=== PATIENT | female | born 1955 | race Caucasian/White ===

== ENCOUNTER 2024-01-18 13:41 | Emergency (ER) | payer MEDICARE, BC, OTHER, SELFPAY ==
[2024-01-18 14:00] VITALS: BP 150/82; PULSE 92; TEMP 36.7; O2SAT 98; BMI 20.9
--- NOTE | 2024-01-18 14:20 | PC.NURSE ---
pain to left hip down to ankle, left knee bruise observed. pt injury while working with kaiden on 12/29 and has been trying the chiropractor but pain is not going away. pt ambulates with a slight limp, pt gowned and call light in place
--- NOTE | 2024-01-18 14:51 | ED.GENADUL1 ---
HPI HPI - General Adult General Chief complaint: Extremity Injury, Lower Stated complaint: LOWER RIGHT EXTREMITY PAIN Time Seen by Provider: 01/18/24 14:22 Source: patient Mode of arrival: walk-in Limitations: no limitations History of Present Illness HPI narrative: Patient is a 68-year-old female who is presenting to the ER with chief from Left lower back pain radiating down to her left buttock and down her left leg. Patient says that she Had an injury on December 29 feeling heavy. Patient was pushing and pulling large kenan of hay, and she felt some pain to her left lower back at that time. Several days later she started noticing pain to her left lower back and left buttock, down to her left leg. 2 weeks ago patient had sought career development facilitator, patient has seen a chiropractor twice with some relief but not really. Patient has been taking anti-inflammatories. Patient does not like to take medication. Patient 2 weeks ago was using heat Every day. Patient has not been using any type of ice, no Stretching has been done either. Patient has no PCP. Patient has seen Dr. Rodas many years ago to help fix a tendon injury in her finger/thumb. Patient has not seen any other doctor recently. All systems are negative except as noted/marked. All systems reviewed and otherwise negative. Nurses note and vital signs reviewed and patient is not hypoxic. General: The patient appears well and in no apparent distress. Patient is resting comfortably on cart. Patient is not toxic, lethargic, or listless Skin: Warm, dry, no pallor noted. There is no rash noted. No petechiae, purpura. Head: Normocephalic, atraumatic Eye: Normal conjunctiva, no drainage, EOMI. PERRL Ears, Nose, Mouth, and Throat: oral mucosa is moist. Nares patent. Mouth without vesicles. Cardiovascular: Regular Rate and Rhythm, no murmur, gallop, rub Respiratory: Patient is in no distress, no accessory muscle use, lungs are clear to auscultation, no wheezing, rales or rhonchi Back: Patient has mild tenderness to palpation to the left paralumbar soft tissue, moderate tenderness to palpation to left piriformis muscle. Mild straight leg raising test on the left, negative straight leg raising test on the right. non-tender, no CVA tenderness bilaterally to percussion. No CT LS midline pain. No signs of saddle anesthesia or cauda equina. GI: no tenderness to palpation, no masses appreciated. No rebound, guarding, or rigidity noted. No distention Musculoskeletal: Patient has full range of motion of all of the extremities, no motor, sensory, or focal neurological deficits Neurological: A&O x4, normal speech Psychiatric: Cooperative Related Data Previous Rx's ?Medication ?Instructions ?Recorded methylprednisolone 4 mg tablets in 4 mg PO DAILY 6 days #21 ea 01/18/24 a dose pack (Medrol (Arnie)) Allergies Allergy/AdvReac Type Severity Reaction Status Date / Time No Known Drug Allergies Allergy Verified 01/18/24 14:05 Opioid HPI Opioid Management Most Recent Opioid Data: No Data to Display Exam Constitutional Vital Signs, click to edit/add: Last Vital Signs Temp 98.0 F 01/18/24 14:00 Pulse 92 H 01/18/24 14:00 Resp 18 01/18/24 14:00 BP 150/82 H 01/18/24 14:00 Pulse Ox 98 01/18/24 14:00 O2 Del Method Room Air 01/18/24 14:00 Course Vital Signs Vital signs: Vital Signs Temperature 98.0 F 01/18/24 14:00 Pulse Rate 92 H 01/18/24 14:00 Respiratory Rate 18 01/18/24 14:00 Blood Pressure 150/82 H 01/18/24 14:00 Pulse Oximetry 98 01/18/24 14:00 Oxygen Delivery Method Room Air 01/18/24 14:00 Temperature 98.0 F 01/18/24 14:00 Pulse Rate 92 H 01/18/24 14:00 Respiratory Rate 18 01/18/24 14:00 Blood Pressure 150/82 H 01/18/24 14:00 Pulse Oximetry 98 01/18/24 14:00 Oxygen Delivery Method Room Air 01/18/24 14:00 Medical Decision Making MDM Narrative Medical decision making narrative: Lab time was spent at bedside educating patient on using ice, sciatica stretching, piriformis syndrome stretching, using anti-inflammatories as well. Patient was placed on a Medrol Dosepak. Patient states that she will follow-up with Dr. Rodas. Patient going to [place] next week will not be returning for another week or 2. If patient still has symptoms she will follow-up with Dr. Rodas. Patient understands this, no questions at discharge. Patient was very thankful for time and care spent at bedside. Discharge Plan Discharge Stand Alone Forms: Portal Instructions Chief Complaint: Extremity Injury, Lower Clinical Impression: Acute left-sided back pain with sciatica, Piriformis syndrome of left side, Acute left lumbar radiculopathy Patient Disposition: Home, Self-Care Time of Disposition Decision: 14:41 Condition: Fair Prescriptions / Home Meds: New methylprednisolone [Medrol (Arnie)] 4 mg tablets,dose pack 4 mg PO DAILY 6 Days Qty: 21 0RF Rx Instructions: as directed Print Language: Sami Instructions: Sciatica (ED), Acute Low Back Pain (ED), Peripheral Neuropathy (ED), Piriformis Syndrome (ED), Back Pain (ED), Lower Back Exercises (ED) Additional Instructions: Increase fluids. Ice 20 minutes on, 20 minutes off. Use muscle relaxer if needed. Do not use heat Do sciatica stretching and piriformis stretching exercises 3-4 times a day to help with pain Referrals: Physician,Non-Staff, MD [Primary Care Provider] - 1 week Discharge Date/Time: 01/18/24 15:06
== END 2024-01-18 15:06 | disposition home or self-care (01) ==
PROVIDERS: Emergency Provider Emergency Medicine
DX: M54.42 Lumbago with sciatica, left side (principal); M54.16 Radiculopathy, lumbar region
CPT/HCPCS: 99283

== ENCOUNTER 2024-10-08 06:31 | Outpatient (OUT) | payer MEDICARE, BC, OTHER, SELFPAY ==
[2024-10-08 07:45] LABS: Erythrocyte Sedimentation Rate 15 mm/hr (<=30)
[2024-10-08 10:49] LABS: Thyroid Stimulating Hormone 1.382 uIU/mL (0.358-3.740)
[2024-10-08 11:01] LABS: Free T4 0.99 ng/dL (0.76-1.46)
[2024-10-08 11:22] LABS: Estimated Average Glucose 114 mg/dL; Glycohemoglobin A1C 5.6 % (4.5-6.2)
[2024-10-09 04:08] LABS: C-Reactive Protein, Cardiac 0.48 mg/L (0.00-3.00); Ceruloplasmin 24.7 mg/dL (19.0-39.0); Homocyst(e)ine 10.7 umol/L (0.0-17.2); Rheumatoid Factor (RF) 23.2 IU/mL (<14.0); Vitamin B12 1342 pg/mL (232-1245)
[2024-10-09 10:10] LABS: Lyme Total Antibody CIA Negative (Negative)
[2024-10-09 12:08] LABS: Rapid Plasma Reagin, Quant Non Reactive titer (NonRea<1:1)
[2024-10-09 14:09] LABS: ANA Direct Positive (Negative); Anti-DNA (DS) Ab Qn 1 IU/mL (0-9); Sjogren's Anti-SS-A <0.2 AI (0.0-0.9); Sjogren's Anti-SS-B <0.2 AI (0.0-0.9)
[2024-10-10 16:09] LABS: Albumin 4.1 g/dL (2.9-4.4); Alpha-1-Globulin 0.3 g/dL (0.0-0.4); Alpha-2-Globulin 0.8 g/dL (0.4-1.0); Gamma Globulin 0.9 g/dL (0.4-1.8); Immunoglobulin A, Qn, Serum 129 mg/dL (87-352); Immunoglobulin G, Qn, Serum 885 mg/dL (586-1602); Immunoglobulin M, Qn, Serum 174 mg/dL (26-217)
[2024-10-10 17:08] LABS: Albumin, U 23.7 % (.); Alpha-1-Globulin, U 10.1 % (.); Beta Globulin, U 24.6 % (.); Gamma Globulin, U 26.6 % (.); M-Spike, % Not Observed % (Not Observed); Protein,Total,Urine <4.0 mg/dL (Not Estab.)
[2024-10-11 20:09] LABS: Copper Level 99 ug/dL (80-158); Zinc Level 84 ug/dL (44-115)
[2024-10-12 12:08] LABS: Methylmalonic Acid, Serum 144 nmol/L (0-378)
[2024-10-14 04:08] LABS: Vitamin B6, Plasma 133.9 ug/L (3.4-65.2)
[2024-10-14 14:10] LABS: West Nile Virus, IgG Negative (Negative); West Nile Virus, IgM Negative (Negative)
== END 2024-10-08 06:32 | disposition home or self-care (01) ==
LOC: LAB 06:31
PROVIDERS: Visit Provider Psychiatry & Neurology Neurology
DX: G62.9 Polyneuropathy, unspecified (principal); R79.89 Other specified abnormal findings of blood chemistry; R51.9 Headache, unspecified; G40.909 Epilepsy, unspecified, not intractable, without status epilepticus; G60.9 Hereditary and idiopathic neuropathy, unspecified; Z11.3 Encounter for screening for infections with a predominantly sexual mode of transmission; E53.1 Pyridoxine deficiency; I70.91 Generalized atherosclerosis; D51.3 Other dietary vitamin B12 deficiency anemia; M79.10 Myalgia, unspecified site; E78.5 Hyperlipidemia, unspecified
CPT/HCPCS: 36415; 82390; 82525; 82570; 82607; 82746; 82784; 83036; 83090; 83921; 84155; 84156; 84165; 84166; 84207; 84439; 84443; 84630; 85652; 86038; 86140; 86225; 86235; 86334; 86335; 86431; 86592; 86618; 86788; 86789